=== PATIENT | female | born 1940 | race Caucasian/White ===

== ENCOUNTER 2018-12-19 10:50 | Day surgery (SDC) | payer OTHER, SELFPAY ==
[2018-12-18] MEDS: PROPARACAINE 0.5% OPHTH SOL 2 DROPS EYE-OP (12:55)
[2018-12-19 11:53] VITALS: BP 119/71; PULSE 81; RESP 18; TEMP 36.4; O2SAT 100
[2018-12-19] MEDS: CATARACT EYE COMPOUND (10 DROPS/SYRINGE) 3 DROPS EYE-OP (11:55)
--- NOTE | 2018-12-19 12:56 | PM.PREOP ---
Pre-operative Note Interval Note History & Physical reviewed/Exam performed by Physician: No Changes to H&P: No
--- NOTE | 2018-12-19 12:56 | PM.OP.1 ---
Operative Date/Time/Diagnoses Pre-op diagnosis: Nuclear Cataract Left eye Post-op diagnosis: same Procedure & Clinicians Surgeon: Dimitri Keene Anesthesia Type: MAC +/- and Sedation Operative Notes Procedure in detail: Patient brought to the operating suite. Tetracaine drops placed in the left eye. Patient was prepped and draped in sterile manner. Wire lid speculum was placed in the eye. Betadine drops were placed on the eye. This was irrigated. Lidocaine jelly was placed on the eye. A paracentesis port was created with a side-port blade. 0.1 mL 1% preservative free lidocaine was injected into the anterior chamber. The anterior chamber was deepened with viscoelastic. 2.6 mm keratome was used to create a temporal clear corneal incision. Cystotome and Utrata forceps were used to create continuous tear capsulorrhexis. Balanced salt solution was used to hydro dissect the nucleus. The phacoemulsification handpiece was inserted and the nucleus was removed using the stop and chop technique. The irrigation aspiration handpiece was inserted and the remaining cortex was removed. Anterior chamber was deepened with viscoelastic. An Meza ZCB00 intraocular lens with a power of 21.0 was injected into the capsular bag. Irrigation aspiration handpiece was inserted and the remaining viscoelastic was removed. Incision was hydrated with balanced salt solution and found to be leak free with pressure with Weck-Modesta sponges. 0.1 mL Vigamox injected anterior chamber. 0.3 mL Kenalog 10 mg was injected subconjunctivally. Lid speculum was removed. The patient left the operating room in excellent condition. Complications: none Condition: stable Disposition: same day surgery
[2018-12-19] MEDS: PHENYLEPHRINE/LIDOCAINE VIAL (OR) 0.2 ML EYE-OP (13:10)
[2018-12-19] MEDS: MOXIFLOXACIN OPHTH DROPS 3 ML BOTTLE 2 DROPS INJ (13:10)
[2018-12-19] MEDS: CHONDROIDTIN/SOD HYALURONATE 1.05 ML SYRINGE INTRAOCULA (13:11)
[2018-12-19] MEDS: TETRACAINE 0.5% OPHTH DROPS 4 ML 2 DROPS EYE-OP (13:11)
[2018-12-19] MEDS: LIDOCAINE JELLY 2% 5 ML 1 APPLIC TOP (13:11)
[2018-12-19] MEDS: TRIAMCINOLONE 50 MG/5 ML VIAL INJ (13:11)
[2018-12-19] MEDS: BALANCED SALT IRRIG SOLN NO.2 500 ML, EPINEPHrine 1 MG IRR (13:12)
[2018-12-19 13:27] VITALS: BP 115/67; PULSE 73; RESP 15; TEMP 36.3; O2SAT 100
== END 2018-12-19 13:40 ==
LOC: OR 10:52
PROVIDERS: PCP Internal Medicine; Visit Provider Ophthalmology
DX: H25.12 Age-related nuclear cataract, left eye (principal)
CPT/HCPCS: J0171; J2250; J3010; J3301

== ENCOUNTER → 2019-12-26 11:53 | Outpatient (CLI) | payer MEDICARE, SELFPAY | PROVIDERS: PCP Internal Medicine; Referring Provider Internal Medicine; Visit Provider Internal Medicine | DX: M81.0 Age-related osteoporosis without current pathological fracture (principal); Z78.0 Asymptomatic menopausal state | CPT/HCPCS: 77063; 77067; 77080 ==

== ENCOUNTER → 2020-12-05 18:43 | Outpatient (ROUT) | payer MEDICARE, SELFPAY ==
[2020-12-05 19:18] LABS: Aspartate Aminotransferase 44 IU/L (14-36); Cholesterol 172 mg/dL (140-199); Glucose 99 mg/dL (80-110); HDL Cholesterol 71 mg/dL (40-60); LDL Cholesterol Calculated 78 mg/dL (<100); Triglycerides 115 mg/dL (35-150)
== END ==
PROVIDERS: PCP Internal Medicine; Visit Provider Internal Medicine
DX: E78.2 Mixed hyperlipidemia (principal)
CPT/HCPCS: 80061; 82947; 84450

== ENCOUNTER → 2020-12-29 10:41 | Outpatient (CLI) | payer OTHER, SELFPAY ==
--- NOTE | 2020-12-29 10:43 | DI.MG.S_ITS ---
BILATERAL DIGITAL SCREENING MAMMOGRAM 3D/2D WITH CAD: 12/29/2020 CLINICAL: Routine screening. Comparison is made to exams dated: 12/16/2017 mammogram, 09/02/2016 mammogram, and 01/24/2013 mammogram - . The tissue of both breasts is heterogeneously dense. This may lower the sensitivity of mammography. Current study was also evaluated with a Computer Aided Detection (CAD) system. No significant masses, calcifications, or other findings are seen in either breast. There has been no significant interval change. IMPRESSION: NEGATIVE There is no mammographic evidence of malignancy. A 1 year screening mammogram is recommended. This exam was interpreted at Station ID: [id number]. NOTE: For mammograms, a report in lay terms will be sent to the patient. Approximately 15% of breast malignancies will not be visualized mammographically. In the management of a palpable breast mass, a negative mammogram must not discourage biopsy of a clinically suspicious lesion. Electronically Signed By: Dung Bhardwaj M.D., jr/meggan:12/29/2020 11:06:32 letter sent: Normal Exam ACR BI-RADS Category 1: Negative 3341F
== END ==
PROVIDERS: PCP Internal Medicine; Referring Provider Internal Medicine; Visit Provider Internal Medicine
DX: Z12.31 Encounter for screening mammogram for malignant neoplasm of breast (principal)
CPT/HCPCS: 77063; 77067

== ENCOUNTER → 2023-08-19 12:44 | Outpatient (CLI) | payer OTHER, SELFPAY ==
--- NOTE | 2023-08-19 12:47 | DI.MG.S_ITS ---
BILATERAL DIGITAL SCREENING MAMMOGRAM 3D/2D WITH CAD: 08/19/2023 CLINICAL: Routine screening. Comparison is made to exams dated: 12/29/2020 mammogram, 12/16/2017 mammogram, and 09/02/2016 mammogram - [facility]. Both breasts are heterogeneously dense, which may obscure small masses (category c / 51-75% glandular tissue). Current study was also evaluated with a Computer Aided Detection (CAD) system. No significant masses, calcifications, or other findings are seen in either breast. There has been no significant interval change. IMPRESSION: NEGATIVE There is no mammographic evidence of malignancy. A 1 year screening mammogram is recommended. Based on the Tyrer Cuzick model (a risk assessment model) the patient's lifetime risk is 1.3% and her 10 year risk is 0.0%. According to the ACR, ACS, and NCCN guidelines, an annual breast MRI exam along with mammogram is recommended if the patient's lifetime risk is 20% or greater. This exam was interpreted at Station ID: [id number]. NOTE: For mammograms, a report in lay terms will be sent to the patient. Approximately 15% of breast malignancies will not be visualized mammographically. In the management of a palpable breast mass, a negative mammogram must not discourage biopsy of a clinically suspicious lesion. Electronically Signed By: Melida santacruz/meggan:08/19/2023 14:25:04 letter sent: Normal Exam ACR BI-RADS Category 1: Negative 3341F
== END ==
PROVIDERS: PCP Internal Medicine; Referring Provider Internal Medicine; Visit Provider Internal Medicine
DX: Z12.31 Encounter for screening mammogram for malignant neoplasm of breast (principal)
CPT/HCPCS: 77063; 77067

== ENCOUNTER → 2023-11-15 08:32 | Outpatient (CLI) | payer OTHER, SELFPAY ==
[2023-11-15 08:53] LABS: Hematocrit 40.9 % (36-46); Hemoglobin 13.6 g/dL (12.0-16.0); Mean Corpuscular HGB Conc 33.4 % (30-36); Mean Corpuscular Hemoglobin 30.2 PG (26-34); Mean Corpuscular Volume 90.6 fL (80-100); Platelet Count 259 X10^3/uL (150-400); Red Blood Cell Count 4.51 X10^6/uL (4.0-5.2); White Blood Cell Count 7.1 X10^3/uL (4.5-11.0)
[2023-11-15 09:20] LABS: Alanine Aminotransferase 20 IU/L (<35); Albumin 4.2 g/dL (3.5-5.0); Albumin Globulin Ratio 1.4 (1.0-2.8); Alkaline Phosphatase 79 U/L (38-126); Aspartate Aminotransferase 31 IU/L (14-36); BUN Creatinine Ratio 31.3 (6-22); Bilirubin Total 0.5 mg/dL (0.2-1.3); Blood Urea Nitrogen 20 mg/dL (7-17); Calcium 10.5 mg/dL (8.4-10.2); Carbon Dioxide 28 mmol/L (22-32); Chloride 103 mmol/L (98-107); Cholesterol 178 mg/dL (140-199); Estimated Glomerular Filt Rate > 60 mL/min (>60); Globulin 3.1 g/dL (1.7-4.1); Glucose 106 mg/dL (80-110); HDL Cholesterol 68 mg/dL (40-60); HEMOLYSIS < 15 (0-50); LDL Cholesterol Calculated 97 mg/dL (<100); Potassium 4.5 mmol/L (3.4-5.1); Sodium 138 mmol/L (137-145); Total Protein 7.3 g/dL (6.3-8.2); Triglycerides 65 mg/dL (35-150)
[2023-11-15 09:50] LABS: TSH w/ Reflex to FT4 1.24 uIU/mL (0.47-4.68)
== END ==
PROVIDERS: PCP Internal Medicine; Referring Provider Internal Medicine; Visit Provider Internal Medicine
DX: K76.0 Fatty (change of) liver, not elsewhere classified (principal); E78.2 Mixed hyperlipidemia; M81.0 Age-related osteoporosis without current pathological fracture
CPT/HCPCS: 36415; 80053; 80061; 84443; 85027

== ENCOUNTER 2025-01-08 18:18 | Emergency (ER) | payer MEDICARE, SELFPAY ==
[2025-01-08] VITALS (7 sets, daily range): BP systolic 151–182; BP diastolic 74–83; PULSE 64–102; RESP 16–18; TEMP 36.6; O2SAT 95–99; BMI 20.5
--- NOTE | 2025-01-08 18:35 | DI.RAD.S_ITS ---
PROCEDURE: XR WRIST LT MIN 3V INDICATIONS: fall out of car. Roxane ROBINS wrist swollen/deform TECHNIQUE: 3 views of the wrist were acquired. COMPARISON: None. FINDINGS: Bones: Displaced, intra-articular fracture the radial styloid with apex volar angulation. Displaced ulnar styloid fracture. Age indeterminate triquetrum fracture. Soft tissues: No suspicious soft tissue calcifications. Wrist edema. IMPRESSION: Intra-articular radial styloid fracture with angulation. Ulnar styloid fracture. Age indeterminate triquetrum fracture along the volar aspect. Dictated by: Jaylen Sneed M.D. on 01/08/2025 at 19:53 Approved by: Jaylen Sneed M.D. on 01/08/2025 at 19:54
--- NOTE | 2025-01-08 22:06 | ED_ITS ---
HPI - Extremity Injury (Upper) General Chief Complaint: Extremity Injury, Upper Stated Complaint: lt wrist injury Time Seen by Provider: 01/08/25 22:06 History of Present Illness HPI narrative: Patient is a mitzy 84-year-old female presenting today with left wrist pain. She reports that she was getting out of the truck when the wind caught the door launching her forward onto her face and her left wrist. Did not lose consciousness no nausea or vomiting. She does have an abrasion on her nose and her lip. She does not take antiplatelet or anticoagulation medication. Related Data Previous Rx's Medication Instructions Recorded estradiol 0.01% (0.1 mg/gram) 1 g vaginal 2XW #42.5 grams 11/15/23 vaginal cream rosuvastatin 10 mg tablet 10 mg PO BEDTIME #90 tabs 02/09/24 hydrocodone 5 mg-acetaminophen 325 1 tab PO Q6H PRN pain #10 tabs 01/08/25 mg tablet Allergies Allergy/AdvReac Type Severity Reaction Status Date / Time No Known Drug Allergies Allergy Verified 01/19/24 09:53 Patient History Medical History Do not resuscitate Atrophic vaginitis Non-alcoholic fatty liver disease Chronic low back pain Age-related osteoporosis without current pathological fracture Mixed hyperlipidemia Mumps Chicken pox Surgical History Anesthesia Broken ankle Broken wrist Family History Father Cancer Brother No problems noted. Grandmother Stroke Social History household members: none Smoking Status: Never smoker Smoking Status: Never smoker Exam Initial Vital Signs Initial Vital Signs: Vital Signs Temperature 97.8 F 01/08/25 18:29 Pulse Rate 94 H 01/08/25 18:29 Respiratory Rate 16 01/08/25 18:29 Blood Pressure 174/81 H 01/08/25 18:29 Pulse Oximetry 98 01/08/25 18:29 Oxygen Delivery Method Room Air 01/08/25 18:29 GENERAL: Alert very pleasant 84-year-old female HEENT: Head atraumatic,EOMI, pupils reactive, face symmetric, moist mucous membranes NECK: No vertebral tenderness full flexion-extension and rotation CARDIOVASCULAR: Regular rate and rhythm without murmurs, rubs or gallops. RESPIRATORY: Breath sounds equal bilaterally, no wheezes rales or rhonchi. ABDOMEN: Soft, nontender. Normoactive bowel sounds all 4 quadrants. No guarding or rebound. EXTREMITIES: Normal range of motion, no clubbing or edema. Neurovascularly intact Left upper extremity deformity distal radial pulse intact able to move fingers no elbow pain NEUROLOGICAL: Alert and oriented x4.Normal gait and speech. Cranial nerves II through XII grossly intact. SKIN: Facial abrasions noted on nose and upper lip. She has a 1.5 cm laceration upper lip it does not go through. Procedures Laceration Repair Laceration 1: Site: face (between upper lip and nose) Size (cm): 1.5 Description: linear Depth: simple, single layer Pre-repair: wound explored Skin layer closed with: dermabond Nerve Block Nerve Block 1: Local Anesthetic: lidocaine 1% Amount of anesthesia used (mL): 10 Side: left Nerve Blocks: hematoma block Procedure Successful: Yes Patient Tolerated Procedure: Well and No complications Complications: none Orthopedic Fracture Reduction Fracture #1: Side: left Fracture Reduction Location: radius and ulna Analgesia: hematoma block Technique: direct manipulation Post Reduction X-rays Demonstrate: acceptable reduction Post-reduction neuro exam: intact Post-reduction vascular exam: intact Splint Applied: Yes Patient Tolerated Procedure: Well and No complications Orthopedic Splinting/Casting Injury #1: Upper Extremity Injury Location: wrist Upper Extremity Immobilizer: sling/shoulder immobilizer and sugar tong splint Post splinting neuro exam: intact Post splinting vascular exam: intact Placed by: Provider Course Orders Ordered: ED Orders 01/08/25 18:35 XR wrist LT min 3V Stat 01/08/25 22:33 XR wrist LT 2V Stat Discontinued Medications Hydrocodone Bitart/Acetaminophen (Hydrocodone/Acet 5/325 Tablet) 1 tab PO NOW ONE Stop: 01/08/25 22:08 Last Admin: 01/08/25 22:17 Dose: 1 tab Documented By: MAYANK Hydrocodone Bitart/Acetaminophen (Hydrocodone/Acet 5/325 Prepack) 1 bottle MISC DIRECTED ONE Stop: 01/08/25 22:57 Last Admin: 01/08/25 23:12 Dose: 1 bottle Documented By: MAYANK Vital Signs Vital signs: Vital Signs - 8 hr 01/08/25 18:29 01/08/25 20:15 01/08/25 20:30 Temperature 97.8 F Pulse Rate 94 H 102 H 95 H Pulse Rate [Left Radial] Respiratory Rate 16 Blood Pressure 174/81 H Pulse Oximetry 98 98 99 Oxygen Delivery Method Room Air 01/08/25 20:30 01/08/25 21:00 01/08/25 21:00 Temperature Pulse Rate 91 H Pulse Rate [Left Radial] Respiratory Rate 18 Blood Pressure 162/74 H 182/80 H Pulse Oximetry 98 Oxygen Delivery Method 01/08/25 21:30 01/08/25 21:30 01/08/25 22:00 Temperature Pulse Rate 88 Pulse Rate [Left Radial] 64 Respiratory Rate Blood Pressure 151/83 H Pulse Oximetry 99 Oxygen Delivery Method 01/08/25 22:08 Temperature Pulse Rate 102 H Pulse Rate [Left Radial] Respiratory Rate Blood Pressure Pulse Oximetry 95 Oxygen Delivery Method MDM - Extremity Injury (Upper) Imaging Data Extremity x-ray #1: Radiologist's Impression: PROCEDURE: XR WRIST LT MIN 3V INDICATIONS: fall out of car. Roxane ROBINS wrist swollen/deform TECHNIQUE: 3 views of the wrist were acquired. COMPARISON: None. FINDINGS: Bones: Displaced, intra-articular fracture the radial styloid with apex volar angulation. Displaced ulnar styloid fracture. Age indeterminate triquetrum fracture. Soft tissues: No suspicious soft tissue calcifications. Wrist edema. IMPRESSION: Intra-articular radial styloid fracture with angulation. Ulnar styloid fracture. Age indeterminate triquetrum fracture along the volar aspect. Dictated by: Jaylen Sneed M.D. on 01/08/2025 at 19:53 Extremity x-ray #2: Radiologist's Impression: PROCEDURE: XR WRIST LT 2V INDICATIONS: post reduction TECHNIQUE: 3 views of the wrist were acquired. [facility]08[facility]25, 18:34. FINDINGS: Bones: There is interval reduction of earlier noted impacted distal radial fracture with improved radial alignment. Displaced ulnar styloid fracture is again seen and unchanged. Interval cast placement over left wrist is seen. No new fracture or dislocation. No suspicious bony lesions. Soft tissues: No suspicious soft tissue calcifications. IMPRESSION: Interval reduction of earlier noted impacted distal radial fracture with improved wrist alignment. Stable appearing displaced ulnar styloid fracture. Interval cast placement over left wrist. No new fracture or dislocation. Dictated by: Glenn Walters M.D. on 01/08/2025 at 22:58 Approved by: Glenn Walters M.D. on 01/08/2025 at 22:59 [facility] Narrative Medical decision making narrative: Patient mitzy 84-year-old female who presents today after mechanical ground level fall. She did hit her face. No loss of conscious nausea or vomiting she has not on anticoagulation or antiplatelet medication. Neck is supple. She does have some abrasions over her nose and a superficial laceration over the top of her lip which is easily repaired with Dermabond. She does have an impacted distal radial fracture on the left side which is reduced. She tolerated the procedure very well. Repeat x-ray is overall reassuring. She was splinted Discharge Plan Departure Patient Disposition: Home Clinical Impression: Closed fracture of left wrist, Face lacerations Instructions: DI for Wrist Fracture, DI for Laceration Repair-Skin Glue Activity Restrictions/Additional Instructions: *You have been diagnosed with left wrist fracture facial laceration *What to do: At this time keep wrist in splint. Elevate often ice 20-30 minutes at a time if needed. This likely require surgery *Continue to take medications as directed [place] 1 tablet at nighttime to help with sleeping or if needed for severe pain Motrin 400 mg every 6-8 hours for abgd-hp-cuisqyig pain or swelling Tylenol 650 mg every 4-6 hours if needed for fkox-mi-ohkcknkn pain *Follow up with your primary care provider in 2-3 days or call [phone] Call [facility] orthopedics to schedule follow up appointment *Return to ER if you should have increasing numbness tingling weakness severe pain or any new, worsening or concerning symptoms CONTROLLED SUBSTANCE DISCHARGE (Narcotoic/benzodiazepine/Flexeril/Phenergan) 1. You have been prescribed narcotic medications, it does have acetaminophen/Tylenol/paracetamol in it, DO NOT TAKE MORE THAN 4,00mg in 24 hours of Tylenol. TRAMADOL DOES NOT CONTAIN TYLENOL 2. Please understand that we cannot provide further refills of narcotics, benzodiazepines or controlled substances through the ED and her pain management will need to be through your provider. 3. While on these medications you cannot drive or operate heavy machinery. 4. You cannot sign legal documents or perform any duties such as this. 5. As long as you're taking opiate pain medications he should also be taking a stool softener such as Colace, Dulcolax, MiraLAX or prune juice, to help avoid constipation. Prescriptions: New hydrocodone-acetaminophen 5-325 mg tablet 1 tab PO Q6H PRN (Reason: pain) Qty: 10 0RF No Action rosuvastatin 10 mg tablet 10 mg PO BEDTIME Qty: 90 3RF estradiol 0.01 % (0.1 mg/gram) cream 1 g vaginal 2XW Qty: 42.5 3RF Referrals: [facility] [Provider Group] Syed Romero MD [Primary Care Provider] - Stand Alone Forms: Patient Portal/API/Survey
[2025-01-08] MEDS: HYDROCODONE/ACET 5/325 TABLET 1 TAB PO (22:17)
--- NOTE | 2025-01-08 22:33 | DI.RAD.S_ITS ---
PROCEDURE: XR WRIST LT 2V INDICATIONS: post reduction TECHNIQUE: 3 views of the wrist were acquired. COMPARISON: [facility], CR, XR WRIST LT MIN 3V, 01/08/2025, 18:34. FINDINGS: Bones: There is interval reduction of earlier noted impacted distal radial fracture with improved radial alignment. Displaced ulnar styloid fracture is again seen and unchanged. Interval cast placement over left wrist is seen. No new fracture or dislocation. No suspicious bony lesions. Soft tissues: No suspicious soft tissue calcifications. IMPRESSION: Interval reduction of earlier noted impacted distal radial fracture with improved wrist alignment. Stable appearing displaced ulnar styloid fracture. Interval cast placement over left wrist. No new fracture or dislocation. Dictated by: Glenn Walters M.D. on 01/08/2025 at 22:58 Approved by: Glenn Walters M.D. on 01/08/2025 at 22:59
[2025-01-08] MEDS: HYDROCODONE/ACET 5/325 PREPACK 1 BOTTLE MISC (23:12)
== END 2025-01-08 23:10 | disposition home or self-care (01) ==
PROVIDERS: Emergency Provider Emergency Medicine; PCP Internal Medicine
DX: S52.512A Displaced fracture of left radial styloid process, initial encounter for closed fracture (principal); S52.612A Displaced fracture of left ulna styloid process, initial encounter for closed fracture; S01.511A Laceration without foreign body of lip, initial encounter; V48.4XXA Person boarding or alighting a car injured in noncollision transport accident, initial encounter
CPT/HCPCS: 12011; 25605; 29125; 64450; 73100; 73110; 99283; 99284

== ENCOUNTER → 2025-02-06 15:19 | Outpatient (CLI) | payer MEDICARE, SELFPAY ==
[2025-02-06 17:27] LABS: Aspartate Aminotransferase 40 IU/L (14-36); Blood Urea Nitrogen 17 mg/dL (7-17); Calcium 11.1 mg/dL (8.4-10.2); Carbon Dioxide 27 mmol/L (22-32); Chloride 104 mmol/L (98-107); Cholesterol 154 mg/dL (140-199); Estimated Glomerular Filt Rate > 60 mL/min (>60); Glucose 103 mg/dL (80-110); HDL Cholesterol 65 mg/dL (40-60); HEMOLYSIS < 15 (0-50); LDL Cholesterol Calculated 74 mg/dL (<100); Potassium 4.2 mmol/L (3.4-5.1); Sodium 139 mmol/L (137-145); Triglycerides 73 mg/dL (35-150)
== END ==
PROVIDERS: PCP Internal Medicine; Referring Provider Internal Medicine; Visit Provider Internal Medicine
DX: E78.2 Mixed hyperlipidemia (principal); K76.0 Fatty (change of) liver, not elsewhere classified
CPT/HCPCS: 36415; 80048; 80061; 84450

== ENCOUNTER → 2025-02-11 09:46 | Outpatient (CLI) | payer MEDICARE, SELFPAY ==
[2025-02-12 18:11] LABS: Fecal Immunochemical Test Negative (Negative)
== END ==
PROVIDERS: PCP Internal Medicine; Referring Provider Internal Medicine; Visit Provider Internal Medicine
DX: Z12.11 Encounter for screening for malignant neoplasm of colon (principal)
CPT/HCPCS: 82274